=== PATIENT | female | born 1955 | race Caucasian/White ===

== ENCOUNTER 2018-04-03 07:15 | Inpatient (IN) | payer OTHER, MEDICARE ==
[~2018-04-03 07:15] MED LIST: TRANEXAMIC ACID 1,000 MG in NS 100 ML IV ONE; fentaNYL 50 MCG in SYRINGE INTRATHECAL 1 SYR IT ONE; morphINE PF 0.2 MG in SYRINGE INTRATHECAL 1 SYR IT ONE
[2018-04-03] MEDS ORDERED: GABAPENTIN 300 MG CAP PO ONE (11:00)
[2018-04-03] MEDS ORDERED: ACETAMINOPHEN 500 MG TAB PO ONE (11:00)
[2018-04-03] MEDS ORDERED: ceFAZolin 2 GM/DEXTROSE 100 ML IV ONE (11:00)
[2018-04-03] MEDS ORDERED: LIDOCAINE 1% 2 ML INJ ID PRN (11:01)
[2018-04-03] MEDS ORDERED: LR 1,000 ML IV ONE (11:01)
[2018-04-03] MEDS ORDERED: BUPIVACAINE 0.25% 30 ML SDV ONE (11:12)
[2018-04-03] MEDS ORDERED: THROMBIN (BOVINE) 5,000 UNIT VIAL TP ONE (11:12)
[2018-04-03] MEDS ORDERED: CHLORHEXIDINE GLUC HIBICLENS 118 ML BTL TP ONE (11:12)
[2018-04-03] MEDS ORDERED: BUPIVACAINE/EPI 0.25% 30 ML SDV ONE (11:13)
[2018-04-03] MEDS ORDERED: BACITRACIN 50,000 UNITS/10 ML SYR IRR ONE (11:13)
--- NOTE | 2018-04-03 12:37 | PDHPUP ---
History & Physical Update H&P update statement: This history and physical update is based on an assessment of the patient which was completed after admission or registration (within 24 hours), but prior to the surgery/procedure. H&P update: H&P reviewed & patient examined, no change in patient's condition since H&P completed
[2018-04-03] MEDS ORDERED: PROPOFOL/EMULSION 500 MG/50 ML BOTTLE IV ONE ×2 (12:53)
[2018-04-03] MEDS ORDERED: fentaNYL 250 MCG/5 ML INJ ONE (12:56)
[2018-04-03] MEDS ORDERED: MIDAZOLAM 2 MG/2 ML VIAL ONE (12:58)
[2018-04-03] MEDS ORDERED: MIDAZOLAM 2 MG/2 ML VIAL IVP ONE (13:03)
--- NOTE | 2018-04-03 13:06 | PDANEPAE ---
ANE History of Present Illness 62 year old female for L2-3 TLIF and removal of hardware from L4-S1 History of depression, HTN, ADHD, Chronic Pain. ANE Past Medical History - Cardiovascular History Hx Hypertension: Yes Hx Arrhythmias: No Hx Chest Pain: No Hx Coronary Artery / Peripheral Vascular Disease: No Hx CHF / Valvular Disease: No Hx Palpitations: No - Pulmonary History Hx COPD: No Hx Asthma/Reactive Airway Disease: No Hx Recent Upper Respiratory Infection: No Hx Oxygen in Use at Home: No Hx Sleep Apnea: Yes Sleep Apnea Screening Result - Last Documented: Positive Pulmonary History Comment: darlin positive uses cpap- instructed pt to bring DOS - Neurologic History Hx Cerebrovascular Accident: No Hx Seizures: No Hx Dementia: No - Endocrine History Hx Diabetes: No Endocrine History Comment: hx of graves disease and removal of thyroid - Renal History Hx Renal Disorders: Yes Renal History Comment: "weak bladder". frequency. 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 anxiety. depression - Cancer History Hx Cancer: No - Congenital Disorder History Hx Congenital Disorders: No - GI History Hx Gastrointestinal Disorders: Yes Gastrointestinal History Comment: chronic constipation - Other Health History Other Health History: wears glasses. 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 hysterectomy then second surgery was removal of ovaries and fallopian tubes. gamaliel. thyroidectomy. 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 ANE Review of Systems Review of systems is: negative Review of Systems: - Exercise capacity METS (RN): 3 METS ANE Patient History - Allergies Allergies/Adverse Reactions: No Known Allergies Allergy (Verified 03/11/18 12:30) - Home Medications Home Medications: Amphet Asp/Amphet/D-Amphet [Amphetamine Salts 20 mg Tablet] 20 mg PO TID@0600, 1000,1300 PRN 03/10/18 [Last Taken 03/31/18] Aspirin [Aspirin 325 mg (*)] 325 mg PO DAILY 03/10/18 [Last Taken 03/27/18] Baclofen [Baclofen 10 mg (*)] 10 mg PO TID 03/10/18 [Last Taken 04/02/18] Citalopram [CeleXA] 60 mg PO DAILY 03/10/18 [Last Taken 04/03/18] Docusate Sodium [Colace 100 MG (*)] 2 mg PO BID 03/10/18 [Last Taken 03/31/18] Herbals/Supplements -Info Only 1 ea PO DAILY 03/10/18 [Last Taken 03/27/18] Losartan/Hydrochlorothiazide [Losartan-Hctz 100-25 mg Tab] 1 each PO DAILY 03/10 [Last Taken 04/02/18] Naproxen 500 mg PO BID 03/10/18 [Last Taken 04/02/18] Oxybutynin Chloride [Oxybutynin Chloride Er] 15 mg PO DAILY 03/10/18 [Last Taken 04/03/18] Potassium Cl [Klor-Con 20 meq (*)] 20 meq PO HS 03/10/18 [Last Taken 04/02/18] Tears/Dextran 70/Hypromellose [Natural Balance Tears (*)] 1 drop EACHEYE QID [Last Taken 04/02/18] Thyroid [[place] Thyroid 60 MG (*)] 120 mg PO DAILY 03/10/18 [Last Taken 04/03/18 ] Topiramate [Topamax] 100 mg PO HS 03/10/18 [Last Taken 04/02/18] Zolpidem Tartrate [Ambien 5MG (*)] 10 mg PO HS 03/10/18 [Last Taken 04/02/18] oxyCODONE IR [Oxycodone Ir (*)] 15 mg PO QID 03/10/18 [Last Taken 04/02/18] - NPO status NPO Since - Liquids (Date): 04/03/18 NPO Since - Liquids (Time): 06:30 NPO Since - Solids (Date): 04/02/18 NPO Since - Solids (Time): 20:00 - Smoking Hx Smoking Status: Former smoker - Family Anes Hx Family Hx Anesthesia Complications: none ANE Labs/Vital Signs - Vital Signs Blood Pressure: 121/65 Heart Rate: 74 Respiratory Rate: 18 O2 Sat (%): 91 Height: 157.48 cm Weight: 81.647 kg ANE Physical Exam - Airway Neck exam: FROM Mallampati Score: Class 2 Mouth exam: normal dental/mouth exam - Pulmonary Pulmonary: no respiratory distress - Cardiovascular Cardiovascular: regular rate and rhythym - ASA Status ASA Status: III ANE Anesthesia Plan Anesthesia Plan: general endotracheal anesthesia
[2018-04-03] MEDS ORDERED: ALBUTEROL 3 ML DEYVIAL IH PRN (13:27)
[2018-04-03] MEDS ORDERED: LABETALOL HCL 5 MG/ML 20 ML MDV IVP PRN (13:27)
[2018-04-03] MEDS ORDERED: ACETAMINOPHEN 500 MG TAB PO PRN (13:27)
[2018-04-03] MEDS ORDERED: ONDANSETRON 4 MG/2 ML VIAL IVP PRN ×2 (13:27→17:38)
[2018-04-03] MEDS ORDERED: oxyCODONE IR 5 MG TAB PO PRN (13:27)
[2018-04-03] MEDS ORDERED: DEXAMETHASONE 4 MG/ML VIAL IVP PRN (13:27)
[2018-04-03] MEDS ORDERED: NALOXONE HCL 0.4 MG/ML INJ IVP PRN ×2 (13:27→17:38)
[2018-04-03] MEDS ORDERED: LR 500 ML IV PRN (13:27)
[2018-04-03] MEDS ORDERED: THROMBIN (BOVINE) 20,000 UNIT VIAL TP ONE (13:34)
[2018-04-03] MEDS ORDERED: HYDROmorphONE/DILAUDID 2 MG/ML INJ ONE ×2 (13:48→17:58)
[2018-04-03] MEDS ORDERED: CITRATE DEXTROSE SOLN 500 ML BAG ONE (14:07)
[2018-04-03] MEDS ORDERED: FUROSEMIDE 20 MG/2 ML VIAL ONE (16:06)
[2018-04-03] MEDS ORDERED: PROPOFOL 200 MG/20 ML VIAL ONE (16:12)
[2018-04-03] MEDS ORDERED: MAGNESIUM HYDROXIDE 30 ML UDCUP PO PRN (17:38)
[2018-04-03] MEDS ORDERED: ONDANSETRON DISINTEGRATING 4 MG TAB PO PRN (17:38)
[2018-04-03] MEDS ORDERED: diphenhydrAMINE 25 MG CAP PO PRN (17:38)
[2018-04-03] MEDS ORDERED: LACTULOSE 20 GM/30 ML UDCUP PO PRN (17:38)
[2018-04-03] MEDS ORDERED: BISACODYL 10 MG SUPP PR PRN (17:38)
--- NOTE | 2018-04-03 17:47 | SOAPPROG ---
SOAP Progress Note Assessment/Plan: Assessment: 62 yo F sp hardware removal L4-S1, L2-4 fusion with L2/3 TLIF Plan: stable to 3N PT/OT no suction on RONNIE for first 24 hours LSO brace when out of bed please call with neuro changes 04/03/18 17:45 Subjective: + back pain, no leg pain. Objective: Vital Signs Temp Pulse Resp BP Pulse Ox 37.3 C 74 18 121/65 H 91 L 04/03/18 11:05 04/03/18 13:06 04/03/18 13:06 04/03/18 13:06 04/03/18 13:06 somnolent PERRL, no facial droop MARTELL x 4 + light touch ICD10 Worksheet Patient Problems: Problems Problem Status Onset Fusion of spine of lumbar region Acute - ICD10 Problem Qualifiers (1) Fusion of spine of lumbar region
--- NOTE | 2018-04-03 17:56 | POSTANESTH ---
Post Anesthetic Evaluation Cardiovascular Status: Normal, Stable Respiratory Status: Normal, Stable Level of Consciousness/Mental Status: Moderately Sleepy Pain Control: Adequate, Prn Tx Ordered Nausea/Vomiting Control: Adequate, Prn Tx Ordered Complications Possibly Related to Anesthesia: None Noted
[2018-04-03] MEDS ORDERED: fentaNYL 100 MCG/2 ML INJ ONE (17:58)
[2018-04-03] MEDS: fentaNYL 100 MCG/2 ML INJ IVP PRN ×3 (18:01→18:54)
[2018-04-03] MEDS: DIAZEPAM 5 MG/ML 1 ML SYR IVP PRN ×4 (18:18→19:16)
[2018-04-03] MEDS ORDERED: METHOCARBAMOL 750 MG TAB ONE (18:42)
[2018-04-03] MEDS: METHOCARBAMOL 750 MG TAB PO PRN (18:43)
[2018-04-03] MEDS ORDERED: oxyCODONE IR 5 MG TAB ONE (19:06)
--- NOTE | 2018-04-03 19:21 | GOP ---
DATE OF OPERATION: 04/03/2018 SURGEON: Nick Harper MD NEUROSURGEON: Nick Harper MD. ASSISTANT AUDITOR: Ryan Whitley PA-C. ANESTHESIA: General endotracheal. PREOPERATIVE DIAGNOSIS: 1. Severe adjacent level degeneration and critical spinal stenosis at L2-3 status post prior L4-S1 fusion. 2. Intractable low back pain and bilateral lower extremity neurogenic claudication and radiculopathies. 3. Failed conservative care. POSTOPERATIVE DIAGNOSIS: 1. Severe adjacent level degeneration and critical spinal stenosis at L2-3 status post prior L4-S1 fusion. 2. Intractable low back pain and bilateral lower extremity neurogenic claudication and radiculopathies. 3. Failed conservative care. PROCEDURE PERFORMED: 1. Removal of posterior segmental (pedicle screws and sub laminar hooks). 2. Fixation from L4-S1 with exploration of spinal fusion and reinstrumentation from L2-L4 with pedicle screws. 3. L2-L4 posterolateral fusion with local autograft and bone morphogenic protein. 4. L2-3 far lateral transpedicular decompression with L2-3 posterior/ transforaminal lumbar interbody fusion with 2 structural polyetheretherketone interbody spacers, local autograft and bone morphogenic protein. 5. Use of intraoperative microscopy, fluoroscopy and computer volumetric stereotactic navigation with intraoperative neurophysiologic testing. 6. Injection of intrathecal narcotic analgesics and subcutaneous and intramuscular local anesthesia for postoperative pain control. FINDINGS: ESTIMATED BLOOD LOSS: 500 cc. INDICATIONS: The patient is a 62-year-old woman with intractable low back pain and bilateral lower extremity radicular and neurogenic claudication symptoms, secondary to severe/critical spinal stenosis at L2-3 status post prior multilevel fusion at L4-S1 with steel instrumentation causing severe artifact requiring myelograms. The patient presents for removal of her prior hardware and exploration of spinal fusion and extension of the fusion and decompression. DESCRIPTION OF PROCEDURE: After informed consent was obtained, the patient was taken to the operating room and placed in a prone position on the Narinder table. The lumbosacral area was prepped and draped in a sterile fashion. After fluoroscopic localization of the correct levels, the subcutaneous and intramuscular tissues were infiltrated with local anesthesia. A midline linear incision was then created from approximately L2-S1. This was carried down to the fascial layer, which was incised using monopolar electrocautery and carried in the subperiosteal plane along the spinous processes and lamina bilaterally. The prior instrumentation was identified and carefully removed. This was very old instrumentation dating back from the 1980s and was incredibly difficult to remove. It took approximately 5 times as long as normal with increased blood loss as well. We eventually got it out and the L4-S1 levels were explored for the fusion along with L3-4 which were all solid. Following this, the microscope was brought in, and a right-sided far lateral, trans-facet, transpedicular decompression was performed at the L2-3 level with complete unroofing of the facet joint and neuroforamen as well as the central canal. Fairly wide decompression was performed rostrally and caudally and medial and laterally. Following this, the swiftQueue neuronavigational system was brought in and using computer volumetric stereotactic navigation, pedicle screws were placed at L2, L3 and L4. I felt that it was in the best interest of the patient to reinstrument down to L4 and reinforce the fusion because this level had never been fused before, and it was probably weak. Following this, distraction was created across the L2-3 interspace and a complete diskectomy was performed with preparation of the endplates and placement of 2 structural PEEK interbody spacers, local autograft and bone morphogenic protein for an L2- 3 posterior/transforaminal lumbar interbody fusion. The screw and jovan system were then placed in a slight amount of compression in order to facilitate bony union and minimize the potential for posterior graft migration. Following re- verification of good position of the screws, rods and interbody spacers, 200 mcg of Duramorph along with 50 mcg of fentanyl were injected intrathecally for postoperative pain control. A piece of DuraGen was placed over the dura that had been exposed because it appeared to be very thin but was not actively leaking. The remaining laminae and facet joints from L2-L4 were then decorticated and the residual local autograft along with bone morphogenic protein was placed out laterally for a posterolateral fusion from L2-L4. A drain was then placed. The subcutaneous and intramuscular tissues were reinfiltrated with local anesthesia, and the wound was closed in a layered fashion using interrupted Vicryl sutures followed by Steri-Strips on the skin. COMPLICATIONS: None. DISPOSITION: The patient is currently in the process of being repositioned for extubation. /[id number]/MODL MTDD
[2018-04-03] MEDS: ceFAZolin 2 GM/DEXTROSE 100 ML IV SCH (21:31)
[2018-04-03] MEDS: NS 1,000 ML IV SCH (21:32)
[2018-04-03] MEDS: BACLOFEN 10 MG TAB PO SCH (21:33)
[2018-04-03] MEDS: GABAPENTIN 300 MG CAP PO SCH ×2 (21:33→22:22)
[2018-04-03] MEDS: FAMOTIDINE 20 MG TAB PO SCH (21:33)
[2018-04-03] MEDS: TOPIRAMATE 100 MG TAB PO SCH (21:34)
[2018-04-03] MEDS: oxyCODONE IR 15 MG TAB PO SCH (21:34)
[2018-04-03] MEDS: POTASSIUM CL 20 MEQ TAB PO SCH (21:34)
[2018-04-03] MEDS: ACETAMINOPHEN 500 MG TAB PO SCH (21:35)
[2018-04-03] MEDS: SENNOSIDES/DOCUSATE SODIUM TAB PO SCH (21:36)
[2018-04-03] MEDS: TEARS/DEXTRAN 70/HYPROMELLOSE 15 ML OPHT.BTL EACHEYE SCH (21:40)
[2018-04-03] MEDS: POLYETHYLENE GLYCOL 3350 17 GM PKT PO SCH (22:22)
[2018-04-04] MEDS: METHOCARBAMOL 750 MG TAB PO PRN ×2 (00:40→13:36)
--- NOTE | 2018-04-04 03:43 | PDMN ---
Medical Necessity Medical necessity: Pt meets INPT criteria per MD as of 04/03/18 and [facility] S-820 Lumbar Fusion (Medicare IPO surgery).
[2018-04-04] MEDS: GABAPENTIN 300 MG CAP PO SCH (03:58)
[2018-04-04] MEDS: TEARS/DEXTRAN 70/HYPROMELLOSE 15 ML OPHT.BTL EACHEYE SCH ×4 (04:22→22:14)
[2018-04-04] MEDS: ceFAZolin 2 GM/DEXTROSE 100 ML IV SCH (04:53)
[2018-04-04] MEDS: ACETAMINOPHEN 500 MG TAB PO SCH ×3 (04:54→23:13)
[2018-04-04 05:04] LABS: PLATELET COUNT 212 10^3/uL (150-400)
[2018-04-04] MEDS ORDERED: ADDERALL 20 MG TAB PO PRN (06:00)
--- NOTE | 2018-04-04 07:47 | NEUSURGPN ---
Date of Surgery: 04/03/18 Post Op Day: 1 Assessment/Plan: 62 yo female s/p L4-S1 hardware removal, L2/3 TLIF, and L2-L4 fusion - neuro stable - pain control - wear brace when out of bed - RONNIE drain x 1 not to suction for first 24 hours then only thumbprint suction due to micro pinhole in dura - PT/OT - postop L-spine x-rays pending - SCDs/TEDs, Lovenox - Discussed with Dr. Kelly Subjective: Having back pain, no lower extremity symptoms. Objective: Awake. Alert. PERRL. EOMI Facial expression symmetrical Muscle strength full at 5/5 Sensation intact Catheter Insertion Date: 04/03/18 - Physician Discussed Patient with : Leroy Neurosurgery Physical Exam - Vitals, I&O, Labs I and O 04/03/18 04/04/18 04/05/18 05:59 05:59 05:59 Intake Total 4510 Output Total 2695 450 Balance 1815 -450 Weight 81.647 kg Intake: Oral (ml) 1210 IV Intake (ml) 3300 Output: Urine (ml) 2150 450 Catheter 2150 450 Estimated Blood Loss (ml) 500 RONNIE Drain Output (ml) 45 Left Back Narinder Carter 45 Other: Number of Voids Catheter 1 1 Vital Signs Temp Pulse Resp BP Pulse Ox 36.7 C 89 17 110/54 L 98 04/04/18 04:00 04/04/18 04:00 04/04/18 04:00 04/04/18 04:00 04/04/18 04:00 Laboratory Results 04/04/18 04:28 04/04/18 04:28 ICD10 Worksheet Patient Problems: Problems Problem Status Onset Fusion of spine of lumbar region Acute
[2018-04-04] MEDS: NS 1,000 ML IV SCH (08:36)
[2018-04-04] MEDS: POLYETHYLENE GLYCOL 3350 17 GM PKT PO SCH ×3 (08:36→21:08)
[2018-04-04] MEDS: ENOXAPARIN 40 MG/0.4 ML SYR SC SCH (08:36)
[2018-04-04] MEDS: CITALOPRAM 20 MG TAB PO SCH (08:37)
[2018-04-04] MEDS: FAMOTIDINE 20 MG TAB PO SCH ×2 (08:37→21:05)
[2018-04-04] MEDS: LOSARTAN/HCTZ 50/12.5 1 TAB PO SCH (08:37)
[2018-04-04] MEDS: OXYBUTYNIN 5 MG EXT REL TAB PO SCH (08:37)
[2018-04-04] MEDS: BACLOFEN 10 MG TAB PO SCH ×3 (08:37→21:06)
[2018-04-04] MEDS: THYROID 60 MG TAB PO SCH (08:37)
[2018-04-04] MEDS: SENNOSIDES/DOCUSATE SODIUM TAB PO SCH ×2 (08:37→21:04)
--- NOTE | 2018-04-04 15:11 | ASMTCMCOM ---
CM Note CM Note Notes: Pt had planned spinal surgery. Pt was pre-arranged with [facility] . PT rec home/outpatient, OT rec home. Pt does want [facility]ana [facility]ALK[facility] with [facility] met with pt today. Cm to follow. Date Signed: 04/04/2018 03:10 PM Electronically Signed By:LINDSEY Pabon
[2018-04-04] MEDS: oxyCODONE IR 15 MG TAB PO SCH ×2 (17:16→21:06)
[2018-04-04] MEDS ORDERED: NS 1,000 ML IV SCH (20:30)
[2018-04-04] MEDS: TOPIRAMATE 100 MG TAB PO SCH (21:05)
[2018-04-04] MEDS: POTASSIUM CL 20 MEQ TAB PO SCH (21:05)
[2018-04-05] MEDS: METHOCARBAMOL 750 MG TAB PO PRN ×2 (05:47→12:06)
[2018-04-05] MEDS: oxyCODONE IR 15 MG TAB PO SCH ×4 (05:47→21:23)
[2018-04-05] MEDS: ACETAMINOPHEN 500 MG TAB PO SCH ×3 (05:47→23:08)
[2018-04-05] MEDS: TEARS/DEXTRAN 70/HYPROMELLOSE 15 ML OPHT.BTL EACHEYE SCH ×4 (05:48→21:28)
[2018-04-05] MEDS: ENOXAPARIN 40 MG/0.4 ML SYR SC SCH (09:09)
[2018-04-05] MEDS: CITALOPRAM 20 MG TAB PO SCH (09:09)
[2018-04-05] MEDS: THYROID 60 MG TAB PO SCH (09:09)
[2018-04-05] MEDS: SENNOSIDES/DOCUSATE SODIUM TAB PO SCH ×2 (09:09→21:22)
[2018-04-05] MEDS: FAMOTIDINE 20 MG TAB PO SCH ×2 (09:10→21:21)
[2018-04-05] MEDS: OXYBUTYNIN 5 MG EXT REL TAB PO SCH (09:10)
[2018-04-05] MEDS: LOSARTAN/HCTZ 50/12.5 1 TAB PO SCH (09:10)
[2018-04-05] MEDS: POLYETHYLENE GLYCOL 3350 17 GM PKT PO SCH ×3 (09:10→21:25)
[2018-04-05] MEDS: BACLOFEN 10 MG TAB PO SCH ×3 (09:10→21:22)
--- NOTE | 2018-04-05 09:50 | SOAPPROG ---
SOAP Progress Note Assessment/Plan: Assessment: 62 yo F POD #2 hardware removal L4-S1, L2-4 fusion with L2/3 TLIF Plan: stable post op x-rays look good will check cbc to follow hg/hct PT/OT RONNIE to thumbprint suction only LSO brace when out of bed please call with neuro changes discussed with Dr Dykes 04/03/18 17:45 04/05/18 09:49 Subjective: + back pain and some pain in left groin, no headaches, no weakness. Objective: Vital Signs Temp Pulse Resp BP Pulse Ox 36.9 C 94 16 105/68 89 L 04/05/18 07:37 04/05/18 07:37 04/05/18 07:37 04/05/18 09:10 04/05/18 07:37 Laboratory Results 04/04/18 04:28 04/04/18 04/05/18 04/06/18 05:59 05:59 05:59 Intake Total 4510 3497 Output Total 2695 2570 Balance 1815 927 AAOx4, +FC PERRL, EOMI, no facial droop 5/5 + light touch C/D/I ICD10 Worksheet Patient Problems: Problems Problem Status Onset Fusion of spine of lumbar region Acute - ICD10 Problem Qualifiers (1) Fusion of spine of lumbar region
--- NOTE | 2018-04-05 11:14 | ASMTCMCOM ---
CM Note CM Note Notes: Pt was pre-arranged with [facility]. PT rec home/outpatient, OT rec home. Pt does want [facility] WALK[facility] with [facility] met with pt yesterday. D/C Plan: Home with [facility]. Date Signed: 04/05/2018 11:14 AM Electronically Signed By:Neda De La Garza
--- NOTE | 2018-04-05 11:20 | ASMTCMCOM ---
CM Note CM Note Notes: Current notes sent to [facility]. D/C Plan: Home with [facility] Date Signed: 04/05/2018 11:20 AM Electronically Signed By:Neda De La Garza
--- NOTE | 2018-04-05 13:33 | ASMTCMCOM ---
CM Note CM Note Notes: [facility] is anticipating a d/c on the ; if this changes they would like to be notified. D/C Plan: Home with [facility] Date Signed: 04/05/2018 01:32 PM Electronically Signed By:Neda De La Garza
[2018-04-05] MEDS: POTASSIUM CL 20 MEQ TAB PO SCH (21:22)
[2018-04-05] MEDS: TOPIRAMATE 100 MG TAB PO SCH (21:25)
[2018-04-06] MEDS: METHOCARBAMOL 750 MG TAB PO PRN ×3 (03:57→22:46)
[2018-04-06] MEDS: oxyCODONE IR 15 MG TAB PO SCH ×4 (05:47→21:40)
[2018-04-06] MEDS: ACETAMINOPHEN 500 MG TAB PO SCH ×3 (05:47→21:39)
[2018-04-06] MEDS: TEARS/DEXTRAN 70/HYPROMELLOSE 15 ML OPHT.BTL EACHEYE SCH ×4 (06:00→21:43)
[2018-04-06] MEDS: BACLOFEN 10 MG TAB PO SCH ×3 (08:54→21:40)
[2018-04-06] MEDS: CITALOPRAM 20 MG TAB PO SCH (08:55)
[2018-04-06] MEDS: ENOXAPARIN 40 MG/0.4 ML SYR SC SCH (08:55)
[2018-04-06] MEDS: OXYBUTYNIN 5 MG EXT REL TAB PO SCH (08:56)
[2018-04-06] MEDS: LOSARTAN/HCTZ 50/12.5 1 TAB PO SCH (08:56)
[2018-04-06] MEDS: SENNOSIDES/DOCUSATE SODIUM TAB PO SCH ×2 (08:57→21:39)
[2018-04-06] MEDS: POLYETHYLENE GLYCOL 3350 17 GM PKT PO SCH ×3 (08:57→21:40)
[2018-04-06] MEDS: THYROID 60 MG TAB PO SCH (08:57)
[2018-04-06] MEDS: FAMOTIDINE 20 MG TAB PO SCH ×2 (08:57→21:40)
--- NOTE | 2018-04-06 11:15 | SOAPPROG ---
SOAP Progress Note Assessment/Plan: Assessment: 62 yo F POD #3 hardware removal L4-S1, L2-4 fusion with L2/3 TLIF Plan: stable and doing well overall post op x-rays look good cbc stable PT/OT RONNIE to thumbprint suction only LSO brace when out of bed please call with neuro changes discussed with Dr Dykes 04/03/18 17:45 04/05/18 09:49 04/06/18 11:13 Subjective: continued back pain with pain in left groin Objective: Vital Signs Temp Pulse Resp BP Pulse Ox 36.8 C 83 17 102/55 L 95 04/06/18 07:33 04/06/18 07:33 04/06/18 07:33 04/06/18 07:33 04/06/18 07:33 Laboratory Results 04/05/18 08:51 04/04/18 04:28 04/05/18 04/06/18 04/07/18 05:59 05:59 05:59 Intake Total 3497 1900 Output Total 2570 1695 40 Balance 927 205 -40 AAOx4, +FC PERRL, EOMI, no facial drop 5/5 + light touch C/D/I ICD10 Worksheet Patient Problems: Problems Problem Status Onset Fusion of spine of lumbar region Acute - ICD10 Problem Qualifiers (1) Fusion of spine of lumbar region
[2018-04-06] MEDS: POTASSIUM CL 20 MEQ TAB PO SCH (21:39)
[2018-04-06] MEDS: TOPIRAMATE 100 MG TAB PO SCH (21:40)
[2018-04-07] MEDS: oxyCODONE IR 15 MG TAB PO SCH (05:33)
[2018-04-07] MEDS: TEARS/DEXTRAN 70/HYPROMELLOSE 15 ML OPHT.BTL EACHEYE SCH ×2 (05:34→12:21)
[2018-04-07] MEDS: ACETAMINOPHEN 500 MG TAB PO SCH (06:49)
[2018-04-07] MEDS: METHOCARBAMOL 750 MG TAB PO PRN ×2 (06:51→13:06)
--- NOTE | 2018-04-07 07:16 | NEUSURGPN ---
Date of Surgery: 04/03/18 Post Op Day: 4 Assessment/Plan: Assessment: 62 yo F POD #4 s/p hardware removal L4-S1, L2-4 fusion with L2/3 TLIF Plan: -neuro stable and doing well overall -post op x-rays look good -prior CBC stable -PT/OT-CPM -RONNIE to thumbprint suction only-reviewed with Dr Miramontes and ok to pull drain -LSO brace when out of bed -please call with neuro changes -discussed with Dr Miramontes -pt seen by Dr Miramontes Subjective: Awake and alert. NAD. No james/neck/chest/abd or gu complaints. No f/c/n/v/d. Pt with lower back pain Objective: AAOx4, +FC PERRLA, EOMI, no facial droop 5/5 BUE/BLE = + light touch C/D/I Neuro Check Frequency: per routine Urinary Catheter in Place: No Catheter Insertion Date: 04/03/18 - Physician Discussed Patient with : Leroy Patient Seen by : Leroy Neurosurgery Physical Exam - Vitals, I&O, Labs I and O 04/06/18 04/07/18 04/08/18 05:59 05:59 05:59 Intake Total 1900 200 Output Total 1695 165 Balance 205 35 Intake: Oral (ml) 1900 200 Output: Urine (ml) 1600 Toilet 1600 RONNIE Drain Output (ml) 95 165 Left Back Narinder Carter 95 165 Other: Intake Quantity Yes Yes Sufficient Number of Voids Toilet 1 1 Number of Stools Toilet 1 1 Vital Signs Temp Pulse Resp BP Pulse Ox 37.2 C 86 16 120/67 96 04/06/18 23:09 04/06/18 23:09 04/06/18 23:09 04/06/18 23:09 04/06/18 23:09 Laboratory Results 04/05/18 08:51 04/04/18 04:28 ICD10 Worksheet Patient Problems: Problems Problem Status Onset Fusion of spine of lumbar region Acute
[2018-04-07] MEDS ORDERED: oxyCODONE IR 15 MG TAB PO PRN ×2 (07:25→08:39)
[2018-04-07 08:02] VITALS: BP 106/62
[2018-04-07] MEDS: CITALOPRAM 20 MG TAB PO SCH (08:35)
[2018-04-07] MEDS: BACLOFEN 10 MG TAB PO SCH (08:35)
[2018-04-07] MEDS: OXYBUTYNIN 5 MG EXT REL TAB PO SCH (08:36)
[2018-04-07] MEDS: THYROID 60 MG TAB PO SCH (08:36)
[2018-04-07] MEDS: FAMOTIDINE 20 MG TAB PO SCH (08:37)
[2018-04-07] MEDS: SENNOSIDES/DOCUSATE SODIUM TAB PO SCH (08:37)
[2018-04-07] MEDS: POLYETHYLENE GLYCOL 3350 17 GM PKT PO SCH (08:38)
[2018-04-07] MEDS: ENOXAPARIN 40 MG/0.4 ML SYR SC SCH (08:39)
[2018-04-07] MEDS: LOSARTAN/HCTZ 50/12.5 1 TAB PO SCH (08:40)
[2018-04-07] MEDS ORDERED: HYDROCODONE/APAP 5/325 TAB PO ONE (08:45)
[2018-04-07] MEDS ORDERED: HYDROCODONE/APAP 5/325 TAB PO PRN (10:50)
[2018-04-07] MEDS ORDERED: oxyCODONE IR 15 MG TAB PO SCH (12:00)
--- NOTE | 2018-04-07 13:41 | ASMTLACE ---
LACE Length of stay for Answers: 4-6 days current admission Acuity / Level of Answers: Yes Care: Did the patient have an inpatient admission? Comorbidities - select Answers: Opioid dependence all that apply / Chronic pain Other Notes: HTN # of Emergency department Answers: 0 visits in the last 6 months Social determinants Answers: Mental health diagnosis (anxiety, depression, pers onality disorders, etc.) Score: 15 Date Signed: 04/07/2018 01:40 PM Electronically Signed By:LINDSEY Pabon
--- NOTE | 2018-04-07 13:42 | ASMTCMCOM ---
CM Note CM Note Notes: Pt medically stable for d/c with [facility] who have protocol with . Date Signed: 04/07/2018 01:41 PM Electronically Signed By:LINDSEY Pabon
--- NOTE | 2018-04-07 13:44 | ASDISCHSUM ---
Discharge Information Plan Status: Medically Cleared to Leave: Discharge Date:04/07/2018 01:13 PM CM D/C Disposition: [facility] D/C Disposition:[id number] Projected Discharge Date:04/07/2018 11:00 AM Transportation at D/C: Discharge Delay Reason: Follow-Up Date:04/07/2018 11:00 AM Discharge Slot: Final Diagnosis: Placement Information Referral Type:*Home Health Care Services Referral ID:[id number] Provider Name:[facility] Address 1:[address] Address 2: City:[place] Selection Factors: State:[place] Patient Contact Information Contact Name:FRANCO Relationship:Sister Address: Work Phone: City: [facility] Phone: [facility] Code: Email: Financial Information Financial Class:Medicare Primary Plan Desc:MEDICARE INPATIENT Primary Plan Number:[id number] Secondary Plan Desc:[employer]/MDR SUPPLEMENT Secondary Plan Number:[id number] Assessment Information LACE LACE Length of stay for Answers: 4-6 days current admission Acuity / Level of Answers: Yes Care: Did the patient have an inpatient admission? Comorbidities - select Answers: Opioid dependence all that apply / Chronic pain Other Notes: HTN # of Emergency department Answers: 0 visits in the last 6 months Social determinants Answers: Mental health diagnosis (anxiety, depression, pers onality disorders, etc.) Score: 15 Date Signed: 04/07/2018 01:40 PM Electronically Signed By:LINDSEY Pabon [facility] CM Progress Note CM Note CM Note Notes: Pt had planned spinal surgery. Pt was pre-arranged with [facility]. PT rec home/outpatient, OT rec home. Pt does want [facility]ana WALKER with [facility] met with pt today. Cm to follow. Date Signed: 04/04/2018 03:10 PM Electronically Signed By:LINDSEY Pabon [facility] CM Progress Note CM Note CM Note Notes: Pt was pre-arranged with [facility]. PT rec home/outpatient, OT rec home. Pt does want [facility]ana WALKER with [facility] met with pt yesterday. D/C Plan: Home with [facility]. Date Signed: 04/05/2018 11:14 AM Electronically Signed By:Neda De La Garza [facility] CM Progress Note CM Note CM Note Notes: Current notes sent to [facility]. D/C Plan: Home with [facility] Date Signed: 04/05/2018 11:20 AM Electronically Signed By:Neda De La Garza [facility] CM Progress Note CM Note CM Note Notes: [facility] is anticipating a d/c on the ; if this changes they would like to be notified. D/C Plan: Home with [facility] Date Signed: 04/05/2018 01:32 PM Electronically Signed By:Neda De La Garza [facility] CM Progress Note CM Note CM Note Notes: Pt medically stable for d/c with [facility] who have protocol with MD. Date Signed: 04/07/2018 01:41 PM Electronically Signed By:LINDSEY Pabon Intervention Information Intervention Type:*IM-Signed Date of Service:04/07/2018 11:12 AM Patient Type:Inpatient Staff Member:Jeanette Jordan Hours: Discipline: Severity: Comment:
== END 2018-04-07 13:13 | disposition home health service (06) | DRG 455 ==
LOC: F3N 10:37
PROVIDERS: ADMIT Neurological Surgery; ATTEND Neurological Surgery
DX: M48.062 Spinal stenosis, lumbar region with neurogenic claudication (principal); M51.16 Intervertebral disc disorders with radiculopathy, lumbar region; Z98.1 Arthrodesis status; I10 Essential (primary) hypertension; G47.33 Obstructive sleep apnea (adult) (pediatric); E89.0 Postprocedural hypothyroidism; R35.0 Frequency of micturition; K59.09 Other constipation
CPT/HCPCS: 97116-GP; 97161-GP; 97165-GO; 97530-GP; 97535-GO; C1713; J0690; J1170; J1650; J1940; J2250; J2274; J2704; J3010; J3360